=== PATIENT | male | born 1955 | race Caucasian/White ===

== ENCOUNTER 2017-12-22 14:45 | Emergency (ER) | payer OTHER, SELFPAY ==
[~2017-12-22] VITALS: Ht 167.6 cm; Wt 68.3 kg
[2017-12-22 15:11] VITALS: BP 176/94
== END 2017-12-22 16:24 | disposition home or self-care (01) ==
LOC: ED 16:18
DX: L03.114 Cellulitis of left upper limb (principal); L20.84 Intrinsic (allergic) eczema
CPT/HCPCS: 99283

== ENCOUNTER 2018-01-04 15:09 | Emergency (ER) | payer OTHER ==
[~2018-01-04] VITALS: Ht 172.7 cm; Wt 65.6 kg
[2018-01-04 16:12] VITALS: BP 183/104
== END 2018-01-04 16:14 | disposition home or self-care (01) ==
LOC: ED 16:11
DX: L20.9 Atopic dermatitis, unspecified (principal)
CPT/HCPCS: 99283; J7512

== ENCOUNTER 2018-02-26 00:49 | Emergency (ER) | payer OTHER ==
[~2018-02-26] VITALS: Ht 172.7 cm; Wt 65.3 kg
[2018-02-26 00:58] VITALS: BP 132/91
--- NOTE | 2018-02-26 01:17 | NUR ---
PT PRESENTED WITH C/O ITCHING AND GENERALIZE RASH THAT STARTED 12/29/1017. PT STATED " THE ITCHING IS SO BAD THAT I CAN'T SLEEP". PT RESTING ON GURNEY, SIDERAILS UP X2, CALL LIGHT WITHIN REACH. AWAITING ERP FOR EVAL AND ORDERS
[2018-02-26] MEDS ORDERED: DOXY100T PO (01:22)
[2018-02-26] MEDS ORDERED: TRIAMCINOLONE ACETONIDE 40 MG/ML, 1ML IM ONE (01:25)
[2018-02-26] MEDS ORDERED: HYDROCORTISONE CRM 2.5%, 20GM TP ONE (01:25)
--- NOTE | 2018-02-26 01:49 | NUR ---
PT MEDICATED PER MAR
== END 2018-02-26 02:13 | disposition home or self-care (01) ==
LOC: ED 01:32
DX: L30.9 Dermatitis, unspecified (principal); Z87.891 Personal history of nicotine dependence
CPT/HCPCS: 96372; 99283; J3301; Q0177

== ENCOUNTER 2019-01-03 15:01 | Emergency (ER) | payer MEDICAID ==
[~2019-01-03] VITALS: Ht 172.7 cm; Wt 62.7 kg
[~2019-01-03 15:01] MED LIST: AMLO10TA8 PO; ASPI-515 PO; DILT90TA PO; DOXY100T PO; FINA5TAB4 PO; LABE100T6 PO; TAMS-11 PO
--- NOTE | 2019-01-03 18:29 | NUR ---
VIAL GAUGER: PER RAJANI PETERSON, PT HAS HAD URINARY RETENTION SINCE 1230 TODAY.
[2019-01-03 18:30] LABS: ALBUMIN 3.6 g/dL (3.4-5.0); ANION GAP 9 mmol/L (5-15); CALCIUM 8.8 mg/dL (8.5-10.1); CHLORIDE 100 mmol/L (98-107)
[2019-01-03 18:34] LABS: ALANINE AMINOTRANSFERASE 23 U/L (12-78); ALKALINE PHOSPHATASE 80 U/L (45-117); BILIRUBIN,TOTAL 1.1 mg/dL (0.2-1.0); CREATININE 3.91 mg/dL (0.7-1.3); TOTAL PROTEIN 8.8 g/dL (6.4-8.2)
--- NOTE | 2019-01-03 18:35 | NUR ---
COMPUTERIZED MILL MILL RECORDER: PT TO ROOM FROM LOBBY.
[2019-01-03 18:38] LABS: MEAN CORPUSCULAR HEMOGLOBIN 30.6 pg (27.5-34.5); MEAN CORPUSCULAR HGB CONC 32.3 g/dL (33.2-36.2); MEAN CORPUSCULAR VOLUME 94.6 fL (81-97); MEAN PLATELET VOLUME 8.8 fL (7.4-10.4); PLATELET COUNT 215 x10^3/uL (130-400); RED BLOOD COUNT 3.73 x10^6/uL (4.38-5.82); RED CELL DISTRIBUTION WIDTH 16.3 % (9.4-14.8)
[2019-01-03 19:08] LABS: MD YES
[2019-01-03 19:15] LABS: <PLATELET ESTIMATE> ADEQUATE; <PLT MORPHOLOGY> NORMAL PLT MORPH; <RBC MORPHOLOGY> NORMAL; EOS#(MANUAL) 2.74 x10^3/uL (0.0-0.4); EOS% (MANUAL) 28 % (1-7); LYMPH#(MANUAL) 1.18 x10^3/uL (1-3.4); LYMPHS% (MANUAL) 12 % (22-44); MONOS#(MANUAL) 0.29 x10^3/uL (0.3-2.7); MONOS% (MANUAL) 3 % (2-9); SEG#(MANUAL) 5.59 x10^3/uL (1.8-6.8); SEGS% (MANUAL) 57 % (42-75)
[2019-01-03 19:21] LABS: CULTURE INDICATED? YES; MICROSCOPIC INDICATED
[2019-01-03 19:30] VITALS: BP 145/89
--- NOTE | 2019-01-03 19:33 | NUR ---
LATE ENTRY: SAENZ PLACED AT 1850 BY RN. PT TOLERATED WELL AND HAD IMMEDICATED RELIEF. VSS. PT WENT TO XRAY FOLLOWING SAENZ PLACEMENT. PT BACK IN ROOM AND RESTING WITH NO NEEDS AT THIS TIME. CALL LIGHT IN REACH
--- NOTE | 2019-01-03 20:00 | NUR ---
Patient refused leg bag. Patient given discharge instructions and they have confirmed that they understand the instructions. Patient ambulatory with steady gait.
== END 2019-01-03 20:02 | disposition home or self-care (01) ==
LOC: ED 19:45
DX: N40.1 Benign prostatic hyperplasia with lower urinary tract symptoms (principal); R33.8 Other retention of urine; K59.00 Constipation, unspecified; I10 Essential (primary) hypertension
CPT/HCPCS: 36415; 51702; 74021; 80053; 81001; 85025; 87077; 87086; 87186

== ENCOUNTER 2019-01-04 15:07 | Emergency (ER) | payer MEDICAID ==
[~2019-01-04] VITALS: Ht 172.7 cm; Wt 64.9 kg
[2019-01-04] MEDS ORDERED: FAMOTIDINE 20 MG TABLET PO ONE (15:30)
[2019-01-04] MEDS ORDERED: PLEASE ENTER HEIGHT AND WEIGHT MC SCH (15:30)
[2019-01-04] MEDS ORDERED: DIPHENHYDRAMINE 25 MG CAPSULE PO ONE (15:30)
[2019-01-04] MEDS ORDERED: DIPHENHYDRAMINE 25 MG CAPSULE ONE ×2 (15:39→15:41)
[2019-01-04] MEDS ORDERED: FAMOTIDINE 20 MG TABLET ONE (15:39)
--- NOTE | 2019-01-04 15:44 | NUR ---
PT HERE TODAY FOR ITCHING ON BODY AFTER TAKING POLYETHYLENE THAT WAS PRESCRIBED TO HIM LAST NIGHT DURING HIS VISIT IN THE ER. PT SITTING ON GURNEY. ALMNAZA.
--- NOTE | 2019-01-04 15:52 | NUR ---
MEDICATED PER EMAR.
--- NOTE | 2019-01-04 16:26 | NUR ---
DC INSTRUCTIONS AND SCRIPT GIVEN TO PT. PT REQUESTING FURTHER MEDICATIONS TO HELP WITH THE ITCHING. THIS RN EXPLAINED MEDS ON SCRIPT AND HOW THE MEDICATION PT INGESTED TO MAKE HIM ITCH NEEDS TIME TO BE DIGESTED OUT OF HIS SYSTEM. PT STATES UNDERSTANDING AND STATES HE WILL WAIT FOR PA TO DISCUSS OPTIONS WITH HIM.
[2019-01-04] MEDS ORDERED: hydrOXYzine 25 MG/ML IM PRN (17:00)
--- NOTE | 2019-01-04 17:48 | NUR ---
PT STATES HE FEELS BETTER. LEAVING NOW.
== END 2019-01-04 17:50 | disposition home or self-care (01) ==
LOC: ED 17:44
DX: L27.0 Generalized skin eruption due to drugs and medicaments taken internally (principal); K59.00 Constipation, unspecified; T47.3X5A Adverse effect of saline and osmotic laxatives, initial encounter; I10 Essential (primary) hypertension; Z87.891 Personal history of nicotine dependence; Y92.89 Other specified places as the place of occurrence of the external cause
CPT/HCPCS: 96372; 99283; J3410; Q0163

== ENCOUNTER 2020-09-28 01:13 | Inpatient (IN) | payer MEDICAID ==
[~2020-09-28] VITALS: Ht 172.7 cm; Wt 73.4 kg
[~2020-09-28 01:13] MED LIST changes: +AMLO-211 PO; -AMLO10TA8 PO; -ASPI-515 PO; +ASPI-963 PO
--- NOTE | 2020-09-28 01:18 | NUR ---
EKG DONE IN TRIAGE
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
[2020-09-28 01:53] LABS: BASOPHILS % (AUTO) 1 % (0-1); EOSINOPHILS % (AUTO) 5 % (1-7); LYMPHOCYTES % (AUTO) 25 % (22-44); MEAN CORPUSCULAR HEMOGLOBIN 33.7 pg (27.5-34.5); MEAN CORPUSCULAR HGB CONC 34.7 g/dL (33.2-36.2); MEAN PLATELET VOLUME 8.5 fL (7.4-10.4); MONOCYTES % (AUTO) 9 % (2-9); NEUTROPHILS % (AUTO) 60 % (42-75); PLATELET COUNT 177 x10^3/uL (130-400); RED BLOOD COUNT 4.32 x10^6/uL (4.38-5.82); RED CELL DISTRIBUTION WIDTH 15.1 % (9.4-14.8)
[2020-09-28] MEDS ORDERED: hydrALAzine 20 MG/ML, 1ML IV ONE ×2 (02:00)
[2020-09-28 02:01] LABS: ALANINE AMINOTRANSFERASE 25 U/L (12-78); ALBUMIN 3.5 g/dL (3.4-5.0); ANION GAP 6 mmol/L (5-15); CALCIUM 8.6 mg/dL (8.5-10.1); CHLORIDE 104 mmol/L (98-107)
[2020-09-28 02:05] LABS: ALKALINE PHOSPHATASE 80 U/L (45-117); BILIRUBIN,TOTAL 0.3 mg/dL (0.2-1.0); TOTAL PROTEIN 7.5 g/dL (6.4-8.2)
[2020-09-28] MEDS ORDERED: NITROGLYCERIN SINGLE TAB 0.4 MG SL ONE (02:25)
[2020-09-28] MEDS ORDERED: hydrALAzine 20 MG/ML, 1ML ONE (02:25)
[2020-09-28] MEDS ORDERED: ASPIRIN 81 MG TABLET CHEW ONE (02:25)
[2020-09-28] MEDS ORDERED: HEPARIN 25,000 UNITS/250ML PMX 250 ML IV PRN ×2 (02:30→03:30)
[2020-09-28] MEDS ORDERED: ONDANSETRON 2MG/ML, 2ML IVPush ONE (02:30)
[2020-09-28] MEDS ORDERED: HEPARIN 5,000 UNITS/ML, 1ML IV ONE (02:30)
[2020-09-28] MEDS ORDERED: ASPIRIN 81 MG TABLET CHEW PO ONE (02:30)
[2020-09-28] MEDS ORDERED: NITROGLYCERIN SINGLE TAB 0.4 MG SL PRN (02:30)
[2020-09-28] MEDS ORDERED: MORPHINE SULFATE 4 MG/ML, 1ML IVPush PRN (02:30)
--- NOTE | 2020-09-28 02:54 | NUR ---
PT MEDICATED FOR HTN AFTER PIV PLACED. BP IMPROVED. ADMITTING MD AT BEDSIDE. CALL LIGHT IN REACH
[2020-09-28] MEDS ORDERED: HEPARIN 5,000 UNITS/ML, 1ML SQ SCH (03:00)
[2020-09-28] MEDS ORDERED: NITROGLYCERIN 0.4 MG BOTTLE (25 TABS) SL PRN (03:00)
[2020-09-28] MEDS ORDERED: hydrALAzine 20 MG/ML, 1ML IVPush PRN (03:00)
[2020-09-28] MEDS ORDERED: ACETAMINOPHEN 325 MG TABLET PO PRN (03:00)
[2020-09-28] MEDS ORDERED: AMLODIPINE 5 MG TABLET PO ONE (03:00)
[2020-09-28] MEDS ORDERED: LACTATED RINGERS 1,000 ML IV SCH (03:00)
[2020-09-28] MEDS ORDERED: HEPARIN 25,000 UNITS/250ML PMX 250 ML ONE (03:05)
[2020-09-28] MEDS ORDERED: HEPARIN 5,000 UNITS/ML, 1ML ONE (03:05)
[2020-09-28] MEDS ORDERED: HEPARIN 5,000 UNITS/ML, 1ML IV PRN (03:30)
[2020-09-28 04:01] VITALS: BP 190/89
[2020-09-28 04:11] VITALS: BP 190/89
[2020-09-28 07:59] VITALS: BP 186/92
[2020-09-28] MEDS: AMLODIPINE 10 MG TAB PO SCH (08:13)
[2020-09-28] MEDS: ASPIRIN 81 MG TABLET EC PO SCH (08:13)
[2020-09-28] MEDS ORDERED: DIPHENHYDRAMINE 50 MG/ML, 1ML IVPush ONE (09:00)
[2020-09-28] MEDS ORDERED: POTASSIUM CHLORIDE 20 MEQ TAB.ER.PRT PO ONE (09:00)
[2020-09-28] MEDS: CARVEDILOL 6.25 MG TABLET PO SCH ×2 (09:55→17:56)
[2020-09-28] MEDS: LISINOPRIL 20 MG TABLET PO SCH ×2 (09:55→21:04)
[2020-09-28] MEDS: FINASTERIDE 5 MG TABLET PO SCH (09:56)
[2020-09-28] MEDS ORDERED: VERAPAMIL 2.5 MG/ML, 2ML ONE (12:01)
[2020-09-28] MEDS ORDERED: MIDAZOLAM 1 MG/ML, 2ML ONE (12:01)
[2020-09-28] MEDS ORDERED: HEPARIN 1,000 UNITS/ML, 10ML ONE (12:01)
[2020-09-28] MEDS ORDERED: LIDOCAINE-MPF 1%, 5ML ONE (12:01)
[2020-09-28] MEDS ORDERED: FENTANYL PF 100 MCG/2ML ONE (12:01)
[2020-09-28] MEDS ORDERED: BIVALIRUDIN 250 MG ONE (12:26)
[2020-09-28] MEDS ORDERED: ASPIRIN 325 MG TABLET EC ONE (12:51)
[2020-09-28] MEDS ORDERED: TICAGRELOR 90 MG TABLET ONE (12:51)
[2020-09-28] MEDS ORDERED: BIVALIRUDIN 250 MG in SODIUM CHLORIDE 0.9% 50 ML IV SCH (13:10)
[2020-09-28] MEDS ORDERED: SODIUM CHLORIDE 0.9% 1,000 ML IV SCH (13:30)
[2020-09-28 13:59] VITALS: BP 129/83
[2020-09-28] MEDS: METHYL SALICYLATE/MENTHOL CRM 85GM TP SCH ×2 (17:55→21:04)
[2020-09-28 18:11] VITALS: BP 154/87
[2020-09-28] MEDS ORDERED: ATORVASTATIN 80 MG TABLET PO SCH (21:00)
[2020-09-28] MEDS ORDERED: TAMSULOSIN 0.4 MG CAP.ER.24H PO SCH (21:00)
[2020-09-28] MEDS: TICAGRELOR 90 MG TABLET PO SCH (21:04)
[2020-09-29 02:17] VITALS: BP 124/69
[2020-09-29] MEDS ORDERED: LACTATED RINGERS 1,000 ML IV SCH (03:00)
[2020-09-29 05:48] LABS: BASOPHILS % (AUTO) 1 % (0-1); EOSINOPHILS % (AUTO) 5 % (1-7); LYMPHOCYTES % (AUTO) 14 % (22-44); MEAN CORPUSCULAR HEMOGLOBIN 33.5 pg (27.5-34.5); MEAN CORPUSCULAR HGB CONC 34.2 g/dL (33.2-36.2); MEAN PLATELET VOLUME 9.5 fL (7.4-10.4); MONOCYTES % (AUTO) 9 % (2-9); NEUTROPHILS % (AUTO) 72 % (42-75); PLATELET COUNT 177 x10^3/uL (130-400); RED BLOOD COUNT 4.22 x10^6/uL (4.38-5.82); RED CELL DISTRIBUTION WIDTH 15.4 % (9.4-14.8)
[2020-09-29 05:53] LABS: ANION GAP 8 mmol/L (5-15); CALCIUM 8.6 mg/dL (8.5-10.1); CHLORIDE 111 mmol/L (98-107); CHOLESTEROL, TOTAL 163 mg/dL (140-239); TRIGLYCERIDES 162 mg/dL (50-200); VLDL CHOLESTEROL 32 mg/dL (0-25)
[2020-09-29 05:55] LABS: HDL CHOL % 25 % (26-37); HDL CHOLESTEROL (DIRECT) 41 mg/dL (40-60); LDL CHOLESTEROL,CALCULATED 90 mg/dL (54-169); LDL/HDL RATIO 2.2 (0.5-3.0)
[2020-09-29] MEDS: CARVEDILOL 6.25 MG TABLET PO SCH (06:13)
[2020-09-29 07:10] VITALS: BP 118/62
[2020-09-29] MEDS: FINASTERIDE 5 MG TABLET PO SCH (08:44)
[2020-09-29] MEDS: TICAGRELOR 90 MG TABLET PO SCH (08:44)
[2020-09-29] MEDS: AMLODIPINE 10 MG TAB PO SCH (08:44)
[2020-09-29] MEDS: ASPIRIN 81 MG TABLET EC PO SCH (08:44)
[2020-09-29] MEDS: LISINOPRIL 20 MG TABLET PO SCH (08:44)
[2020-09-29] MEDS: METHYL SALICYLATE/MENTHOL CRM 85GM TP SCH (08:47)
[2020-09-29] MEDS ORDERED: ASPIRIN 81 MG TABLET EC PO SCH (09:00)
[2020-09-29] MEDS ORDERED: LISI-170 PO (12:24)
[2020-09-29] MEDS ORDERED: TICA90TA PO (12:24)
[2020-09-29] MEDS ORDERED: ATOR-2 PO (12:24)
[2020-09-29] MEDS ORDERED: ASPI81TA45 PO (12:24)
[2020-09-29] MEDS ORDERED: AMLO-211 PO (12:24)
[2020-09-29] MEDS ORDERED: CARV6.2512 PO (12:54)
== END 2020-09-29 14:00 | disposition home or self-care (01) | DRG 247 ==
LOC: ED 01:35 → SUATTDRO 02:36 → EDIP 02:52 → 5SO 02:59
PROVIDERS: ADMIT Student in an Organized Health Care Education/Training Program; ATTEND Hospitalist
PROC: 027034Z Dilation of Coronary Artery, One Artery with Drug-eluting Intraluminal Device, Percutaneous Approach (ICD-10-PCS; principal; 2020-09-28)
PROC: 4A023N7 Measurement of Cardiac Sampling and Pressure, Left Heart, Percutaneous Approach (ICD-10-PCS; 2020-09-28)
PROC: B2111ZZ Fluoroscopy of Multiple Coronary Arteries using Low Osmolar Contrast (ICD-10-PCS; 2020-09-28)
PROC: B2151ZZ Fluoroscopy of Left Heart using Low Osmolar Contrast (ICD-10-PCS; 2020-09-28)
DX: I21.4 Non-ST elevation (NSTEMI) myocardial infarction (principal); I16.1 Hypertensive emergency; E11.51 Type 2 diabetes mellitus with diabetic peripheral angiopathy without gangrene; E11.22 Type 2 diabetes mellitus with diabetic chronic kidney disease; E78.5 Hyperlipidemia, unspecified; E87.6 Hypokalemia; F17.210 Nicotine dependence, cigarettes, uncomplicated; I13.10 Hypertensive heart and chronic kidney disease without heart failure, with stage 1 through stage 4 chronic kidney disease, or unspecified chronic kidney disease; I25.10 Atherosclerotic heart disease of native coronary artery without angina pectoris; R00.1 Bradycardia, unspecified; N40.0 Benign prostatic hyperplasia without lower urinary tract symptoms; J44.9 Chronic obstructive pulmonary disease, unspecified; N18.30 Chronic kidney disease, stage 3 unspecified; Z79.02 Long term (current) use of antithrombotics/antiplatelets; Z86.79 Personal history of other diseases of the circulatory system; Z82.49 Family history of ischemic heart disease and other diseases of the circulatory system; Z91.14 Patient's other noncompliance with medication regimen
CPT/HCPCS: 36415; 93458; 96374; 96375; 99291; C9600; 71045; 80048; 80053; 80061; 80320; 83036; 84484; 85025; 85520; 93005; 93306; 93356; 99156; 99157; C1769; C1894; G0378; J0583; J1644; J2250; J3010; C1725; C1874; C1887; G0480; J0360; J1200; J7030; J7120; Q9967

== ENCOUNTER 2020-10-21 12:17 | Inpatient (IN) | payer MEDICAID ==
[~2020-10-21] VITALS: Ht 172.7 cm; Wt 66.3 kg
[~2020-10-21 12:17] MED LIST changes: +ASPI81TA45 PO; +ATOR-2 PO; +CARV6.2512 PO; +LISI-170 PO; +TICA90TA PO
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
[2020-10-21] MEDS ORDERED: FENTANYL PF 100 MCG/2ML ONE (12:20)
[2020-10-21] MEDS ORDERED: TICAGRELOR 90 MG TABLET ONE (12:20)
[2020-10-21] MEDS ORDERED: MIDAZOLAM 1 MG/ML, 5ML ONE (12:20)
[2020-10-21] MEDS ORDERED: LIDOCAINE 2%, 20ML ONE (12:21)
[2020-10-21] MEDS ORDERED: HEPARIN 1,000 UNITS/ML, 10ML ONE (12:21)
[2020-10-21] MEDS ORDERED: BIVALIRUDIN 250 MG ONE (12:21)
[2020-10-21] MEDS ORDERED: VERAPAMIL 2.5 MG/ML, 2ML ONE (12:21)
[2020-10-21] MEDS ORDERED: FENTANYL PF 100 MCG/2ML IVPush PRN (12:30)
[2020-10-21 12:34] LABS: BASOPHILS % (AUTO) 0 % (0-1); EOSINOPHILS % (AUTO) 6 % (1-7); LYMPHOCYTES % (AUTO) 32 % (22-44); MEAN CORPUSCULAR HEMOGLOBIN 32.6 pg (27.5-34.5); MEAN CORPUSCULAR HGB CONC 33.6 g/dL (33.2-36.2); MEAN PLATELET VOLUME 8.8 fL (7.4-10.4); MONOCYTES % (AUTO) 8 % (2-9); NEUTROPHILS % (AUTO) 54 % (42-75); PLATELET COUNT 187 x10^3/uL (130-400); RED BLOOD COUNT 4.31 x10^6/uL (4.38-5.82); RED CELL DISTRIBUTION WIDTH 14.7 % (9.4-14.8)
--- NOTE | 2020-10-21 12:41 | NUR ---
belongings of phone, pants, cell phone, and underwear taken to [facility] by stacy sup.
[2020-10-21 12:46] LABS: INTERNATIONAL NORMALIZED RATIO 0.93 (0.93-1.1)
[2020-10-21 12:51] LABS: TROPONIN I 0.165 ng/mL (0.000-0.045)
[2020-10-21] MEDS ORDERED: ASPIRIN 81 MG TABLET EC PO ONE (13:00)
[2020-10-21] MEDS ORDERED: NITROGLYCERIN 0.4 MG BOTTLE (25 TABS) SL PRN (13:00)
[2020-10-21] MEDS ORDERED: DIPHENHYDRAMINE 50 MG/ML, 1ML ONE (13:14)
[2020-10-21] MEDS ORDERED: AMIODARONE 150 MG in DEXTROSE 5% 100 ML IV ONE (14:00)
[2020-10-21] MEDS: SODIUM CHLORIDE 0.9% 1,000 ML IV SCH ×2 (14:00→21:26)
[2020-10-21] MEDS ORDERED: METOPROLOL TARTRATE 25 MG TAB PO SCH (18:00)
[2020-10-21] MEDS ORDERED: DIPHENHYDRAMINE 25 MG CAPSULE ONE (20:53)
[2020-10-21] MEDS: DIPHENHYDRAMINE 25 MG CAPSULE PO PRN (20:55)
[2020-10-21] MEDS: LISINOPRIL 20 MG TABLET PO SCH (20:56)
[2020-10-21] MEDS: CARVEDILOL 6.25 MG TABLET PO SCH (20:56)
[2020-10-21] MEDS: TICAGRELOR 90 MG TABLET PO SCH (20:56)
[2020-10-21] MEDS: ATORVASTATIN 80 MG TABLET PO SCH (20:56)
[2020-10-21] MEDS: TAMSULOSIN 0.4 MG CAP.ER.24H PO SCH (20:57)
[2020-10-21] MEDS: THIAMINE 100MG TABLET PO SCH (20:57)
[2020-10-21] MEDS ORDERED: LORazepam 1MG TABLET ONE (22:36)
[2020-10-21] MEDS: AMIODARONE 450 MG in DEXTROSE 5% 241 ML IV PRN (23:22)
[2020-10-22 04:16] LABS: BASOPHILS % (AUTO) 0 % (0-1); EOSINOPHILS % (AUTO) 2 % (1-7); LYMPHOCYTES % (AUTO) 6 % (22-44); MEAN CORPUSCULAR HEMOGLOBIN 32.5 pg (27.5-34.5); MEAN CORPUSCULAR HGB CONC 33.4 g/dL (33.2-36.2); MEAN PLATELET VOLUME 8.9 fL (7.4-10.4); MONOCYTES % (AUTO) 4 % (2-9); NEUTROPHILS % (AUTO) 88 % (42-75); PLATELET COUNT 177 x10^3/uL (130-400); RED BLOOD COUNT 4.33 x10^6/uL (4.38-5.82); RED CELL DISTRIBUTION WIDTH 14.8 % (9.4-14.8)
[2020-10-22 04:28] LABS: ALANINE AMINOTRANSFERASE 68 U/L (12-78); ANION GAP 7 mmol/L (5-15); CALCIUM 8.3 mg/dL (8.5-10.1); CHLORIDE 107 mmol/L (98-107); CREATININE 1.79 mg/dL (0.7-1.3)
[2020-10-22 04:31] LABS: ALKALINE PHOSPHATASE 57 U/L (45-117); BILIRUBIN,TOTAL 0.7 mg/dL (0.2-1.0)
[2020-10-22] MEDS: SODIUM CHLORIDE 0.9% 1,000 ML IV SCH ×3 (05:03→21:30)
[2020-10-22] MEDS: MULTIVITAMIN 1 TABLET PO SCH (08:34)
[2020-10-22] MEDS: FOLIC ACID 1 MG TABLET PO SCH (08:34)
[2020-10-22] MEDS: CARVEDILOL 6.25 MG TABLET PO SCH ×2 (08:34→20:54)
[2020-10-22] MEDS: THIAMINE 100MG TABLET PO SCH ×2 (08:34→20:54)
[2020-10-22] MEDS: TICAGRELOR 90 MG TABLET PO SCH (08:34)
[2020-10-22] MEDS: LISINOPRIL 20 MG TABLET PO SCH ×2 (08:34→20:53)
[2020-10-22] MEDS: AMLODIPINE 10 MG TAB PO SCH (08:34)
[2020-10-22] MEDS: ASPIRIN 81 MG TABLET EC PO SCH (08:35)
[2020-10-22] MEDS: FINASTERIDE 5 MG TABLET PO SCH (09:35)
[2020-10-22] MEDS: FILTER 0.22 MICRON IV SCH (16:51)
[2020-10-22] MEDS: AMIODARONE 450 MG in DEXTROSE 5% 241 ML IV PRN (16:53)
[2020-10-22 19:49] VITALS: BP 137/85
[2020-10-22] MEDS: TAMSULOSIN 0.4 MG CAP.ER.24H PO SCH (20:53)
[2020-10-22] MEDS: ATORVASTATIN 80 MG TABLET PO SCH (20:54)
[2020-10-23] VITALS (7 sets, daily range): BP systolic 96–146; BP diastolic 60–89
[2020-10-23] MEDS: SODIUM CHLORIDE 0.9% 1,000 ML IV SCH (03:11)
[2020-10-23 05:12] LABS: ANION GAP 6 mmol/L (5-15); CALCIUM 8.4 mg/dL (8.5-10.1); CHLORIDE 105 mmol/L (98-107)
[2020-10-23 05:13] LABS: CREATININE 1.98 mg/dL (0.7-1.3)
[2020-10-23] MEDS: PRASUGREL 10 MG TABLET PO SCH (10:08)
[2020-10-23] MEDS: FOLIC ACID 1 MG TABLET PO SCH (10:08)
[2020-10-23] MEDS: MULTIVITAMIN 1 TABLET PO SCH (10:08)
[2020-10-23] MEDS: CARVEDILOL 6.25 MG TABLET PO SCH ×2 (10:09→21:33)
[2020-10-23] MEDS: THIAMINE 100MG TABLET PO SCH ×2 (10:09→21:33)
[2020-10-23] MEDS: ASPIRIN 81 MG TABLET EC PO SCH (10:09)
[2020-10-23] MEDS: AMLODIPINE 10 MG TAB PO SCH (10:09)
[2020-10-23] MEDS: FINASTERIDE 5 MG TABLET PO SCH (10:11)
[2020-10-23] MEDS: LISINOPRIL 20 MG TABLET PO SCH ×2 (10:11→21:33)
[2020-10-23] MEDS: AMIODARONE 200 MG TABLET PO SCH (21:33)
[2020-10-23] MEDS: ATORVASTATIN 80 MG TABLET PO SCH (21:33)
[2020-10-23] MEDS: TAMSULOSIN 0.4 MG CAP.ER.24H PO SCH (21:33)
[2020-10-23] MEDS: AMIODARONE 450 MG in DEXTROSE 5% 241 ML IV PRN (23:38)
[2020-10-23] MEDS: FILTER 0.22 MICRON IV SCH (23:40)
[2020-10-24 00:15] VITALS: BP 90/68
[2020-10-24 02:39] LABS: CLOSTRIDIUM DIFFICILE ANTIGEN NEGATIVE; CLOSTRIDIUM DIFFICILE TOXIN NEGATIVE (Negative)
[2020-10-24 05:56] LABS: ANION GAP 8 mmol/L (5-15); CALCIUM 8.5 mg/dL (8.5-10.1); CHLORIDE 107 mmol/L (98-107); CREATININE 2.32 mg/dL (0.7-1.3)
[2020-10-24 07:12] VITALS: BP 94/62
[2020-10-24] MEDS: AMIODARONE 200 MG TABLET PO SCH ×2 (08:48→20:31)
[2020-10-24] MEDS: PRASUGREL 10 MG TABLET PO SCH (08:55)
[2020-10-24] MEDS: FOLIC ACID 1 MG TABLET PO SCH (08:55)
[2020-10-24] MEDS: ASPIRIN 81 MG TABLET EC PO SCH (08:55)
[2020-10-24] MEDS: THIAMINE 100MG TABLET PO SCH ×2 (08:55→20:30)
[2020-10-24] MEDS: MULTIVITAMIN 1 TABLET PO SCH (08:55)
[2020-10-24] MEDS: FINASTERIDE 5 MG TABLET PO SCH (08:56)
[2020-10-24] MEDS: CARVEDILOL 6.25 MG TABLET PO SCH ×2 (08:56→20:30)
[2020-10-24] MEDS: LISINOPRIL 20 MG TABLET PO SCH ×2 (08:58→20:31)
[2020-10-24] MEDS: AMLODIPINE 10 MG TAB PO SCH (08:58)
[2020-10-24] MEDS ORDERED: DIPHENOXYLATE/ATROPINE TABLET PO PRN (09:30)
[2020-10-24 13:37] VITALS: BP 98/62
[2020-10-24] MEDS: FILTER 0.22 MICRON IV SCH (16:57)
[2020-10-24] MEDS: AMIODARONE 450 MG in DEXTROSE 5% 241 ML IV PRN (16:58)
[2020-10-24 19:26] VITALS: BP 95/89
[2020-10-24 20:29] VITALS: BP 101/66
[2020-10-24] MEDS: ATORVASTATIN 80 MG TABLET PO SCH (20:30)
[2020-10-24] MEDS: TAMSULOSIN 0.4 MG CAP.ER.24H PO SCH (20:31)
[2020-10-25 01:04] VITALS: BP 100/61
[2020-10-25 05:13] LABS: ANION GAP 9 mmol/L (5-15); CALCIUM 8.6 mg/dL (8.5-10.1); CHLORIDE 107 mmol/L (98-107); CREATININE 2.44 mg/dL (0.7-1.3)
[2020-10-25] MEDS: DIPHENHYDRAMINE 25 MG CAPSULE PO PRN (05:16)
[2020-10-25 07:15] VITALS: BP 106/70
[2020-10-25] MEDS: ASPIRIN 81 MG TABLET EC PO SCH (08:58)
[2020-10-25] MEDS: FOLIC ACID 1 MG TABLET PO SCH (08:58)
[2020-10-25] MEDS: LISINOPRIL 20 MG TABLET PO SCH ×2 (08:58→20:43)
[2020-10-25] MEDS: MULTIVITAMIN 1 TABLET PO SCH (08:58)
[2020-10-25] MEDS: PRASUGREL 10 MG TABLET PO SCH (08:58)
[2020-10-25] MEDS: CARVEDILOL 6.25 MG TABLET PO SCH ×2 (08:58→20:42)
[2020-10-25] MEDS: AMIODARONE 200 MG TABLET PO SCH ×2 (08:58→20:43)
[2020-10-25] MEDS: FINASTERIDE 5 MG TABLET PO SCH (08:59)
[2020-10-25] MEDS: THIAMINE 100MG TABLET PO SCH ×2 (08:59→20:43)
[2020-10-25] MEDS: AMLODIPINE 10 MG TAB PO SCH (08:59)
[2020-10-25 13:45] VITALS: BP 115/75
[2020-10-25 20:04] VITALS: BP 118/75
[2020-10-25] MEDS: ATORVASTATIN 80 MG TABLET PO SCH (20:43)
[2020-10-25] MEDS: TAMSULOSIN 0.4 MG CAP.ER.24H PO SCH (20:43)
[2020-10-25 21:49] VITALS: BP 92/60
[2020-10-26 00:44] VITALS: BP 100/66
[2020-10-26] MEDS ORDERED: DILTIAZEM 5 MG/ML, 5ML IVPush PRN (01:00)
[2020-10-26 07:25] VITALS: BP 127/68
[2020-10-26] MEDS: ASPIRIN 81 MG TABLET EC PO SCH (08:43)
[2020-10-26] MEDS: PRASUGREL 10 MG TABLET PO SCH (08:43)
[2020-10-26] MEDS: AMLODIPINE 10 MG TAB PO SCH (08:44)
[2020-10-26] MEDS: FOLIC ACID 1 MG TABLET PO SCH (08:44)
[2020-10-26] MEDS: THIAMINE 100MG TABLET PO SCH ×2 (08:44→20:51)
[2020-10-26] MEDS: AMIODARONE 200 MG TABLET PO SCH ×2 (08:44→20:50)
[2020-10-26] MEDS: FINASTERIDE 5 MG TABLET PO SCH (08:44)
[2020-10-26] MEDS: LISINOPRIL 20 MG TABLET PO SCH ×2 (08:44→20:51)
[2020-10-26] MEDS: CARVEDILOL 12.5 MG TABLET PO SCH ×2 (08:44→20:51)
[2020-10-26] MEDS: MULTIVITAMIN 1 TABLET PO SCH (08:45)
[2020-10-26] MEDS ORDERED: AMIODARONE 150 MG in DEXTROSE 5% 100 ML IV ONE ×3 (09:00→11:30)
[2020-10-26] MEDS ORDERED: AMIODARONE 450 MG in DEXTROSE 5% 241 ML IV PRN (11:30)
[2020-10-26] MEDS: FILTER 0.22 MICRON IV SCH (11:34)
[2020-10-26 14:21] VITALS: BP 100/63
[2020-10-26] MEDS ORDERED: ACETAMINOPHEN 325 MG TABLET PO PRN (17:00)
[2020-10-26] MEDS ORDERED: OXYcodone/APAP 5/325MG TABLET PO PRN (19:30)
[2020-10-26 20:26] VITALS: BP 107/71
[2020-10-26] MEDS: TAMSULOSIN 0.4 MG CAP.ER.24H PO SCH (20:50)
[2020-10-26] MEDS: ATORVASTATIN 80 MG TABLET PO SCH (20:51)
[2020-10-27 03:25] VITALS: BP 95/61
[2020-10-27 08:20] VITALS: BP 105/68
[2020-10-27] MEDS: AMLODIPINE 10 MG TAB PO SCH (08:48)
[2020-10-27] MEDS: MULTIVITAMIN 1 TABLET PO SCH (08:48)
[2020-10-27] MEDS: CARVEDILOL 12.5 MG TABLET PO SCH ×2 (08:48→22:03)
[2020-10-27] MEDS: PRASUGREL 10 MG TABLET PO SCH (08:48)
[2020-10-27] MEDS: FOLIC ACID 1 MG TABLET PO SCH (08:48)
[2020-10-27] MEDS: LISINOPRIL 20 MG TABLET PO SCH ×2 (08:48→22:03)
[2020-10-27] MEDS: THIAMINE 100MG TABLET PO SCH ×2 (08:49→22:06)
[2020-10-27] MEDS: ASPIRIN 81 MG TABLET EC PO SCH (08:49)
[2020-10-27] MEDS: AMIODARONE 200 MG TABLET PO SCH ×2 (08:49→21:49)
[2020-10-27] MEDS: FINASTERIDE 5 MG TABLET PO SCH (08:50)
[2020-10-27] MEDS ORDERED: ZOLPIDEM 5MG TABLET PO PRN (09:30)
[2020-10-27] MEDS: APIXABAN 5 MG TABLET PO SCH ×2 (09:51→21:52)
[2020-10-27 14:36] VITALS: BP 108/71
[2020-10-27] MEDS ORDERED: AMIODARONE 150 MG in DEXTROSE 5% 100 ML IV ONE (18:00)
[2020-10-27 20:31] VITALS: BP 126/79
[2020-10-27] MEDS: ATORVASTATIN 80 MG TABLET PO SCH (22:02)
[2020-10-27] MEDS: TAMSULOSIN 0.4 MG CAP.ER.24H PO SCH (22:06)
[2020-10-27] MEDS ORDERED: AMIODARONE 450 MG in DEXTROSE 5% 241 ML IV PRN (22:30)
[2020-10-27] MEDS: FILTER 0.22 MICRON IV SCH (22:39)
[2020-10-28 01:01] VITALS: BP 98/57
[2020-10-28 06:51] VITALS: BP 98/65
[2020-10-28 08:43] VITALS: BP 95/57
[2020-10-28] MEDS: FINASTERIDE 5 MG TABLET PO SCH (08:49)
[2020-10-28] MEDS: THIAMINE 100MG TABLET PO SCH (08:49)
[2020-10-28] MEDS: AMIODARONE 200 MG TABLET PO SCH (08:50)
[2020-10-28] MEDS: APIXABAN 5 MG TABLET PO SCH (08:50)
[2020-10-28] MEDS: MULTIVITAMIN 1 TABLET PO SCH (08:51)
[2020-10-28] MEDS: PRASUGREL 10 MG TABLET PO SCH (08:51)
[2020-10-28] MEDS: LISINOPRIL 20 MG TABLET PO SCH (08:51)
[2020-10-28] MEDS: AMLODIPINE 10 MG TAB PO SCH (08:51)
[2020-10-28] MEDS: FOLIC ACID 1 MG TABLET PO SCH (08:51)
[2020-10-28] MEDS: ASPIRIN 81 MG TABLET EC PO SCH (08:51)
[2020-10-28] MEDS: CARVEDILOL 12.5 MG TABLET PO SCH (08:52)
[2020-10-28] MEDS ORDERED: APIX5TAB PO (08:56)
[2020-10-28] MEDS ORDERED: AMIO200T42 PO (08:56)
[2020-10-28] MEDS ORDERED: CARV12.52 PO (08:58)
[2020-10-28] MEDS ORDERED: PRAS10TA4 PO (08:58)
[2020-10-28 11:56] VITALS: BP 112/73
[2020-10-28 12:00] VITALS: BP 112/73
[2020-10-28 14:27] VITALS: BP 99/66
== END 2020-10-28 14:38 | disposition home or self-care (01) | DRG 247 ==
LOC: MERGE 12:17 → EDSEX 12:17 → EDBD 12:17 → ED 12:31 → CCU 13:00 → 5SO 10-22 13:57
PROVIDERS: ADMIT Internal Medicine Cardiovascular Disease; ATTEND Internal Medicine Cardiovascular Disease
PROC: 027034Z Dilation of Coronary Artery, One Artery with Drug-eluting Intraluminal Device, Percutaneous Approach (ICD-10-PCS; principal; 2020-10-21)
PROC: 4A023N7 Measurement of Cardiac Sampling and Pressure, Left Heart, Percutaneous Approach (ICD-10-PCS; 2020-10-21)
PROC: B2111ZZ Fluoroscopy of Multiple Coronary Arteries using Low Osmolar Contrast (ICD-10-PCS; 2020-10-21)
DX: I21.4 Non-ST elevation (NSTEMI) myocardial infarction (principal); E87.1 Hypo-osmolality and hyponatremia; E78.5 Hyperlipidemia, unspecified; F17.210 Nicotine dependence, cigarettes, uncomplicated; I12.9 Hypertensive chronic kidney disease with stage 1 through stage 4 chronic kidney disease, or unspecified chronic kidney disease; I25.10 Atherosclerotic heart disease of native coronary artery without angina pectoris; I48.91 Unspecified atrial fibrillation; I73.9 Peripheral vascular disease, unspecified; N18.9 Chronic kidney disease, unspecified; N40.0 Benign prostatic hyperplasia without lower urinary tract symptoms; Z86.79 Personal history of other diseases of the circulatory system; Z95.5 Presence of coronary angioplasty implant and graft; I25.2 Old myocardial infarction; Z79.899 Other long term (current) drug therapy
CPT/HCPCS: 36415; 93458; 96374; 99285; C9600; J3490; 71045; 80047; 80048; 80053; 83036; 83735; 84100; 84484; 85025; 85610; 85730; 87081; 87324; 93005; 93308; 93321; 93325; 99156; 99157; C1769; C1894; G0378; J0583; J1644; J2250; J3010; J7060; C1725; C1874; C1887; J0282; J1200; J7030; Q0163; Q9967